=== PATIENT | female | born 1975 | race Caucasian/White ===

== ENCOUNTER 2019-10-05 17:42 | Emergency (ER) | payer OTHER, SELFPAY ==
[2019-10-05 17:53] VITALS: BP 131/83; PULSE 70; RESP 20; TEMP 36.6; O2SAT 98
--- NOTE | 2019-10-05 18:01 | ED.SKABFB ---
HPI - Skin/Abscess/Foreign Bdy General Chief complaint: Skin/Abscess/Foreign Body Stated complaint: rash Time Seen by Provider: 10/05/19 17:45 Source: patient Mode of arrival: ambulatory Limitations: no limitations History of Present Illness HPI narrative: 43-year-old female presents to urgent care with complaints of erythematous itchy rash to her bilateral knees and right thigh for the past 2 to 3 days. Patient reports long history of contact dermatitis. Patient reports that she was diagnosed 3 years ago and has recurrent flareups during the summer to her knees and legs. Patient reports that she recently saw dermatology and was placed on a new topical steroid as well as given and IM injection of steroids in the office. Patient reports that the rash resolved after 1 week but then quickly returned 2 to 3 days ago. Patient reports itching to the area of rash. Patient has been taking [id number] Zyrtec and Singulair with little relief. Patient denies shortness of breath, wheezing, trouble breathing or difficulty swallowing. MD complaint: rash Onset (ago): day(s) (3) Quality: pruritic Relieving factors: none Exacerbating factors: none Associated symptoms: denies other symptoms Related Data Home Medications Medication Instructions Recorded Confirmed montelukast 10 mg tablet 10 mg PO DAILY 06/29/19 10/05/19 cetirizine [Zyrtec] 10 mg PO DAILY 10/05/19 10/05/19 Allergies Allergy/AdvReac Type Severity Reaction Status Date / Time codeine Allergy Mild Anaphylaxis Verified 06/29/19 08:58 Review of Systems Review of Systems: All systems reviewed & are unremarkable except as noted in HPI and below Constitutional: Constitutional: Denies chills, Denies fever(s) and Denies weakness ENT: Denies dysphagia, Denies dizziness, Denies epistaxis and Denies sore throat Respiratory: Respiratory: Denies chest congestion, Denies cough, Denies dyspnea and Denies wheezing Gastrointestinal: Gastrointestinal: Denies abdominal pain, Denies constipation, Denies diarrhea, Denies nausea and Denies vomiting Musculoskeletal: Musculoskeletal: Denies arthralgias, Denies joint swelling and Denies muscle cramps Integumentary/Breasts: Skin/Breast: Denies breast mass, Reports pruritus, Reports erythema, Reports rash and Denies skin ulcer Neurologic: Denies confusion, Denies vertigo, Denies dizziness, Denies syncope and Denies weakness PMFSH Past Medical History Medical History (Updated 10/05/19 @ 18:12 by Maribel Spangler APRN) Eczematous dermatitis Family History Family History Grandparent Family history of malignant neoplasm of ovary Mother Family history of malignant neoplasm of ovary Sibling Patient's sister is in good health Father Acute myocardial infarction, Onset Age: 61 Social History Social History Smoking status: Never smoker Alcohol intake: never Gender identity (if verbalized by the patient): Female Exam Const: General: healthy appearing, no acute distress and alert Nutritional Appearance: well nourished Orientation/consciousness: patient oriented x3 Eyes: Pupils: Equal, round and reactive pupils present Neck: Neck: normal visual inspection Resp: Effort & Inspection: normal respiratory effort, not labored and not tachypneic Auscultation: clear to auscultation bilaterally Cardio: Rate: regular rate, not bradycardic and not tachycardic Rhythm: regular rhythm Heart sounds: no murmurs Skin: General skin exam: normal color, no jaundice and no pallor Wounds: no wounds Other: Raised erythematous rash noted to bilateral knees and lateral aspect of right thigh representing contact dermatitis. Rash appears to be excoriated due to large amount of scratching. There is no purulent drainage, bruising, bleeding, streaking erythema or signs of infection noted. Neuro: General: patient oriented x3 an
[2019-10-05] MEDS: methylPREDNISolone ACETATE 40 MG/ML VIAL IM (18:09)
== END 2019-10-05 18:16 | disposition home or self-care (01) ==
PROVIDERS: Emergency Provider Nurse Practitioner Family; PCP Family Medicine
DX: L25.9 Unspecified contact dermatitis, unspecified cause (principal)
CPT/HCPCS: 96372; 99213; G0463; J1030

== ENCOUNTER 2019-11-14 07:58 | Outpatient (CLI) | payer OTHER, SELFPAY ==
--- NOTE | ~2019-11-14 | MM_ITS ---
EXAMINATION: MM screening adriana BI w dori HISTORY: Screening TECHNIQUE: Craniocaudal and mediolateral oblique 3-D tomosynthesis images were obtained and synthetic 2-D images were generated. CAD analysis was submitted and interpreted. COMPARISON: No prior mammogram is available for comparison at this institution. BREAST PARENCHYMAL COMPOSITION: The breasts are heterogeneously dense, which may obscure small masses . FINDINGS: There are scattered benign-appearing breast calcifications. There is no evidence of suspici ous mass, calcification, or architectural distortion to suggest malignancy in either breast. There bautista s been no suspicious interval change. IMPRESSION: 1. No mammographic evidence of malignancy. 2. Recommend routine screening mammography in one year. BI-RADS Category 2: Benign finding(s). Reviewed, dictated and finalized at location A.
== END 2019-11-14 07:59 | disposition home or self-care (01) ==
PROVIDERS: Visit Provider Nurse Practitioner
DX: Z12.31 Encounter for screening mammogram for malignant neoplasm of breast (principal)
CPT/HCPCS: 77063; 77067

== ENCOUNTER → 2019-11-14 08:21 | Outpatient (CLI) | payer OTHER, SELFPAY ==
--- NOTE | ~2019-11-14 | US_ITS ---
EXAMINATION: US transvaginal EXAM DATE: 11/14/2019 09:21 INDICATION: Family history of ovarian cancer. TECHNIQUE: Pelvic transvaginal sonogram was performed. There are multiple grayscale and Doppler imag es available for interpretation. There is no prior study for comparison. FINDINGS: Uterus measures 8.2 x 3.9 x 5.1 cm, and is morphologically normal. Endometrial stripe levi sures 9 mm, within normal limits. There is no free pelvic fluid. Right adnexa: The ovary measures 1.5 x 1.1 x 1.3 cm and is morphologically normal. Ovarian vascular f low confirmed. Left adnexa: The ovary measures 3.3 x 2.2 x 2.3 cm and is morphologically normal, contains the domina nt physiologic follicle. Ovarian vascular flow confirmed. IMPRESSION: 1. Unremarkable pelvic ultrasound exam. Reviewed, dictated and finalized at location A.
== END ==
PROVIDERS: Visit Provider Nurse Practitioner
DX: N93.8 Other specified abnormal uterine and vaginal bleeding (principal); Z80.41 Family history of malignant neoplasm of ovary
CPT/HCPCS: 76830

== ENCOUNTER 2020-01-05 14:26 | Outpatient (CLI) | payer OTHER, SELFPAY ==
--- NOTE | ~2020-01-05 | XR_ITS ---
XR cervical spine 4-5V 01/05/2020 14:57 Indication: Neck pain Procedure: 4 views of the cervical spine Comparison: No prior studies for comparison. Findings: Mild multilevel uncinate hypertrophy. No fracture, subluxation or dislocation. No preverteb ral soft tissue abnormality. Odontoid process within normal limits. Lateral masses are normally align ed. Lung apices are normal. Impression: 1: Mild cervical spondylosis. Reviewed, dictated and finalized at location A. 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
--- NOTE | ~2020-01-05 | XR_ITS ---
XR shoulder LT min 2V 01/05/2020 14:56 INDICATION: Left shoulder pain PROCEDURE: 4 views left shoulder COMPARISON: No prior studies for comparison. FINDINGS: Fracture, dislocation or subluxation is not identified. The soft tissues appear within norm al limits. No foreign bodies are identified. IMPRESSION: 1: NO ACUTE BONE OR JOINT ABNORMALITY IDENTIFIED. Reviewed, dictated and finalized at location A. [employer]OR [employer]AMATION
== END 2020-01-05 14:27 | disposition home or self-care (01) ==
PROVIDERS: PCP Family Medicine; Visit Provider Family Medicine
DX: M25.512 Pain in left shoulder (principal); R20.0 Anesthesia of skin; M47.812 Spondylosis without myelopathy or radiculopathy, cervical region
CPT/HCPCS: 72050; 73030

== ENCOUNTER 2020-07-17 19:10 | Emergency (ER) | payer OTHER, SELFPAY ==
[2020-07-17 19:16] VITALS: BP 127/93; PULSE 87; RESP 20; TEMP 36.7; O2SAT 99
--- NOTE | 2020-07-17 19:44 | ED.GENADULT ---
HPI - General Adult General Chief complaint: Skin/Abscess/Foreign Body Stated complaint: Rash Source: patient Mode of arrival: ambulatory Limitations: no limitations History of Present Illness HPI narrative: Patient presents for evaluation of pruritus to the left elbow for last 2 weeks. She indicates she has recurrent dermatitis left elbow that occurs annually in February. This year her symptoms started 2 weeks ago. She denies any new lotions, soaps, detergents, topical products. In the past she has required Kenalog 40 mg IM. She states that she cannot tolerate oral steroids and has increased irritability and insomnia while on oral steroids. She is seen dermatology for this in the past. In the last 2 days she is used several topical products including steroids and herbal products without much improvement in her symptoms. She is leaving tomorrow for a trip to [place]. Related Data Home Medications Medication Instructions Recorded Confirmed levonorgestrel-ethinyl estrad 1 tablet DAILY 07/17/20 07/17/20 [Vienva] montelukast 10 mg DAILY 07/17/20 07/17/20 pregabalin 75 mg DAILY 07/17/20 07/17/20 Allergies Allergy/AdvReac Type Severity Reaction Status Date / Time codeine Allergy Mild Anaphylaxis Verified 04/27/20 10:18 Review of Systems Review of Systems: Narrative: CONSTITUTIONAL: Denies fever, chills, or sweats. EYES: Denies visual changes, redness, or discharge. ENT: Denies rhinorrhea, congestion, sore throat, or otalgia. CARDIOVASCULAR: Denies chest pain, palpitations, or edema. RESPIRATORY: Denies cough or dyspnea. GASTROINTESTINAL: Denies abdominal pain, nausea, vomiting, or diarrhea. GENITOURINARY: Denies dysuria or hematuria. SKIN: Reports itching to the left elbow MUSCULOSKELETAL: Denies back pain, joint pain, or myalgia. NEUROLOGIC: Denies headache, numbness, dizziness, or weakness. PSYCHIATRIC: Denies anxiety or depression. [facility] Past Medical History Medical History Eczematous dermatitis Surgical History Surgical History Adhesive capsulitis of left shoulder April 2020 Family History Family History Grandparent Family history of malignant neoplasm of ovary Mother Family history of malignant neoplasm of ovary Sibling Patient's sister is in good health Father Acute myocardial infarction, Onset Age: 61 Social History Social History Second hand tobacco smoke exposure: No Alcohol intake: never Substance use: never Substance use type: does not use Gender identity (if verbalized by the patient): Female Exam Narrative: Exam Narrative: GENERAL: Well-appearing, well-nourished, and in no acute distress. HEAD: Normocephalic, atraumatic. EYES: PERRLA and EOMI. ENT: Nares clear, no rhinorrhea or epistaxis. Mucous membranes moist. Oropharynx without tonsillar hypertrophy exudate or other lesions. Bilateral TMs pearly gan nonbulging NECK: Supple. No adenopathy or masses. No carotid bruits or JVD CHEST: Clear to auscultation. No respiratory distress. No wheezes rales or rhonchi HEART: Regular rate and rhythm. No murmur heard. Normal peripheral pulses. ABDOMEN: Soft, nontender, nondistended, normal active bowel sounds. EXTREMITIES: Normal range of motion. No edema. SKIN: Approximately 2 cm of erythema noted to left elbow. Otherwise skin is warm, dry, no rash. NEURO: No focal deficits. Alert and oriented x3. PSYCH: s normal mood and affect. 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 She is leaving for a trip tomorrow and has required an Kenalog in the past. Unfortunately we do not have the medication available here. I contacted pharmacist for dose conversi
[2020-07-17] MEDS: methylPREDNISolone SOD SUCC 125 MG VIAL 40 MG IM (19:50)
[2020-07-17 19:54] VITALS: BP 127/93; PULSE 87; RESP 20; TEMP 36.7; O2SAT 99
== END 2020-07-17 19:56 | disposition home or self-care (01) ==
PROVIDERS: Emergency Provider Nurse Practitioner; PCP Family Medicine
DX: R21 Rash and other nonspecific skin eruption (principal); L23.9 Allergic contact dermatitis, unspecified cause
CPT/HCPCS: 96372; 99213; G0463; J2930

== ENCOUNTER 2021-04-03 10:28 | Emergency (ER) | payer OTHER, SELFPAY ==
--- NOTE | 2021-04-03 10:41 | ED.ALLEREA ---
HPI - Allergic Reaction General Chief complaint: Allergic Reaction Stated complaint: Alergic reaction Time Seen by Provider: 04/03/21 10:46 Source: patient, RN notes reviewed and old records reviewed Mode of arrival: ambulatory Limitations: no limitations History of Present Illness HPI narrative: 45 year old female who presents to [facility] with complaints of allergic dermatitis with itching to her face and eyes. Patient reports that she takes a monthly allergy shot for seasonal allergies and she usually has a few days duration of some bumps to her cheeks, some facial flushing for a few days after receiving her injection but this has continued, last allergy injection was on the February. Patient states that she has used OTC ointments to face for rosacea taken her Singulair and Zyrtec and also has been taking hydroxyzine without resolution of the facial flushing, itching of face and eyes. Patient denies any difficulty breathing or any trouble with her swallowing. Patient denies any new medications, foods, lotions,soaps, or any new laundry detergents. MD complaint: facial swelling Symptoms: itching and facial swelling Treatment prior to arrival: topical medicine and ice Related Data Home Medications Medication Instructions Recorded Confirmed hydroxyzine HCl 25 mg PO PRN PRN 04/03/21 04/03/21 meloxicam 15 mg PO DAILY 04/03/21 04/03/21 Allergies Allergy/AdvReac Type Severity Reaction Status Date / Time codeine Allergy Severe Anaphylaxis Verified 04/03/21 15:54 Review of Systems Review of Systems: CONSTITUTIONAL: Denies fever, chills, or sweats. EYES: Denies visual changes, redness, or discharge.positive for itching and burning sensation to eyes. ENT: Denies rhinorrhea, congestion, sore throat, or otalgia. CARDIOVASCULAR: Denies chest pain, palpitations, or edema. RESPIRATORY: Denies cough or dyspnea. GASTROINTESTINAL: Denies abdominal pain, nausea, vomiting, or diarrhea. GENITOURINARY: Denies dysuria or hematuria. SKIN: Positive for facial rash with redness and warm with itching and also itching to eyes. MUSCULOSKELETAL: Denies back pain, joint pain, or myalgia. NEUROLOGIC: Denies headache, numbness, or weakness. PSYCHIATRIC: Denies anxiety or depression. All systems reviewed & are unremarkable except as noted in HPI and below PMFSH Past Medical History Medical History Adhesive capsulitis Allergic asthma Duodenal ulcer Eczematous dermatitis GERD (gastroesophageal reflux disease) Seasonal allergies Surgical History Surgical History Adhesive capsulitis of left shoulder April 2020 Family History Family History Grandparent Family history of malignant neoplasm of ovary Mother Family history of malignant neoplasm of ovary Sibling Patient's sister is in good health Father Acute myocardial infarction, Onset Age: 61 Social History Social History Social History: Smoking status: Never smoker Second hand tobacco smoke exposure: No Alcohol intake: never Substance use: never Substance use type: does not use Gender identity (if verbalized by the patient): Female Sexual Orientation (if Verbalized by the Patient): Straight or Heterosexual Comments At time of signature, agree with nursing past medical, surgical, social and family history. There is no relevant family history pertinent to the presenting complaint Exam Narrative: GENERAL: Well-appearing, well-nourished, and in no acute distress. HEAD: Normocephalic, atraumatic. EYES: PERRLA and EOMI, bilateral eyes burning and itching ENT: Nares clear, no rhinorrhea or epistaxis. Mucous membranes moist.TM's normal with good light reflex, throat pink with no lesions or exudates no tonsil enlargement, no Brodie a
[2021-04-03 10:48] VITALS: BP 116/88; PULSE 85; RESP 18; TEMP 36.2; O2SAT 100
[2021-04-03] MEDS: TRIAMCINOLONE ACET INJ 40 MG/ML VIAL IM (10:59)
== END 2021-04-03 11:45 | disposition home or self-care (01) ==
PROVIDERS: Emergency Provider Registered Nurse; PCP Family Medicine
DX: L25.8 Unspecified contact dermatitis due to other agents (principal); K21.9 Gastro-esophageal reflux disease without esophagitis; J45.909 Unspecified asthma, uncomplicated
CPT/HCPCS: 96372; 99213; G0463; J3301

== ENCOUNTER 2021-08-25 09:55 | Outpatient (CLI) | payer OTHER, SELFPAY | END 2021-08-25 09:56 | disposition home or self-care (01) | LOC: ANHAUDIO 09:57 | PROVIDERS: PCP Family Medicine; Visit Provider Otolaryngology | DX: H93.13 Tinnitus, bilateral (principal) | CPT/HCPCS: 92557; 92567 ==

== ENCOUNTER 2022-06-29 15:34 | Emergency (ER) | payer OTHER, SELFPAY ==
[2022-06-29 15:39] VITALS: BP 107/84; PULSE 75; RESP 16; TEMP 36.1; O2SAT 99
--- NOTE | 2022-06-29 15:53 | ED.EYEPROB ---
HPI - Eye Problem General Chief complaint: Eye Problems Stated complaint: EYE REDNESS Time Seen by Provider: 06/29/22 15:44 Source: patient and RN notes reviewed Mode of arrival: ambulatory Limitations: no limitations History of Present Illness HPI Narrative: Patient presents today complaining of bilateral eye redness, right greater than left with white drainage from the right eye. Symptoms began this morning when she woke up. Denies vision changes or pain to the eye. She tried some Visine without relief. Patient also reports some allergy symptoms this morning including congestion, sneezing. She does not take any allergy medication and states that it was causing tinnitus. Patient wears glasses Related Data Allergies Allergy/AdvReac Type Severity Reaction Status Date / Time codeine Allergy Severe Anaphylaxis Verified 06/29/22 15:35 Review of Systems Review of Systems: CONSTITUTIONAL: Denies body aches, fever, chills, or sweats. EYES: Denies visual changes.+ bilateral eye redness, right eye drainage ENT: Denies rhinorrhea, sore throat, or otalgia.+ congestion, sneezing CARDIOVASCULAR: Denies chest pain, palpitations, or edema. RESPIRATORY: Denies cough or dyspnea. GASTROINTESTINAL: Denies abdominal pain, nausea, vomiting, or diarrhea. GENITOURINARY: Denies dysuria or hematuria. SKIN: Denies rash, itching, or wounds. MUSCULOSKELETAL: Denies back pain, joint pain, or myalgia. NEUROLOGIC: Denies headache, numbness, tingling, or weakness. PSYCH: Denies depression or anxiety. [facility] Past Medical History Medical History Adhesive capsulitis Allergic asthma Chronic GERD Constipation Dermatitis of lower extremity Duodenal ulcer Dysfunction of both eustachian tubes Eczematous dermatitis Fibromyalgia Generalized pruritus GERD (gastroesophageal reflux disease) PUD (peptic ulcer disease) PUD (peptic ulcer disease) Seasonal allergies Urticaria Surgical History Surgical History Adhesive capsulitis of left shoulder April 2020 Family History Family History Grandparent Family history of malignant neoplasm of ovary Mother Family history of malignant neoplasm of ovary Hearing loss associated with syndrome Sibling Patient's sister is in good health Father Acute myocardial infarction, Onset Age: 61 Social History Social History Social History: Smoking status: Never smoker Second hand tobacco smoke exposure: No Alcohol intake: never Substance use: never Substance use type: does not use Lack of Transportation: No Lack of Food: Never True Current Housing: I Have Housing Concerned About Future Housing: No Difficulty Paying Gas/Electric Bills: No Difficulty Paying for Meds: No Currently Unemployed: No Education: Master's Degree or Higher Difficulty w/ Childcare or Family Care: No Living arrangements: with family Occupation/Education: occupation Gender identity (if verbalized by the patient): Female Sexual Orientation (if Verbalized by the Patient): Straight or Heterosexual Comments At time of signature, I have reviewed and agree with nursing past medical, surgical, social and family history unless otherwise noted. Please see nursing chart for further information. There is no relevant family history pertinent to the presenting complaint Exam Narrative: GENERAL: Well-appearing, well-nourished, and in no acute distress. HEAD: Normocephalic, atraumatic. EYES: EOMI. PERRL. Left eye normal. Right eye mildly injected with active my purulent discharge. Lids and lashes normal. ENT: Mucous membranes pink and moist. Nares congested. NECK: Normal AROM. Supple. No lymphadenopathy. CHEST: No respiratory distress. Clear t
== END 2022-06-29 15:59 | disposition home or self-care (01) ==
PROVIDERS: Emergency Provider Nurse Practitioner; PCP Family Medicine
DX: H10.31 Unspecified acute conjunctivitis, right eye (principal); J45.909 Unspecified asthma, uncomplicated; K21.9 Gastro-esophageal reflux disease without esophagitis; M79.7 Fibromyalgia; K27.9 Peptic ulcer, site unspecified, unspecified as acute or chronic, without hemorrhage or perforation
CPT/HCPCS: 99213; G0463

== ENCOUNTER → 2022-08-09 14:44 | Outpatient (CLI) | payer OTHER, SELFPAY ==
--- NOTE | ~2022-08-09 | CT_ITS ---
EXAMINATION: CT sinus wo con DATE: 08/09/2022 14:57 INDICATION: TECHNIQUE: Computed tomography (CT) of the paranasal sinuses was performed without intravenous contra st. Automated exposure control and iterative reconstruction technique were employed. The dose-length product (DLP) was 294.16 mGy-cm. Iterative reconstruction was used. COMPARISON: None FINDINGS: There is normal development and pneumatization of the paranasal sinuses. Retention cyst/jose angel yp in the right sphenoid sinus. Somewhat nodular appearing mucosal thickening in the inferior bilater al maxillary sinuses. Small volume fluid in the left mastoid air cells. The remaining aerated spaces are clear. The bilateral ostiomeatal complexes are patent. Visualized soft tissues are unremarkable. Mild degenerative change at the atlantoaxial joint. IMPRESSION: Mucoperiosteal disease in the bilateral maxillary sinuses. Retention cyst/polyp in the right sphenoid sinus. Small left mastoid effusion. Reviewed, dictated and finalized at location K.
== END ==
PROVIDERS: PCP Family Medicine
DX: J01.00 Acute maxillary sinusitis, unspecified (principal); J34.1 Cyst and mucocele of nose and nasal sinus; H74.8X2 Other specified disorders of left middle ear and mastoid
CPT/HCPCS: 70486

== ENCOUNTER 2022-11-14 08:01 | Outpatient (CLI) | payer OTHER, SELFPAY ==
--- NOTE | ~2022-11-14 | CT_ITS ---
Noncontrast CT scan of the cervical spine Technique: Multiple contiguous axial [address] images of the cervical spine were obtained and rec onstructed in 2D sagittal and coronal planes on the acquisition scanner. Dose reduction technique was used on this scan by utilizing automated exposure control, adjustment of the mA and/or kV according to patient size. The dose-length product (DLP) was 163.33 mGy-cm. Clinical History: Spondylosis Findings: No fractures or dislocations. There is minimal reversal normal cervical lordosis. Interver tebral disc spaces are well preserved. No significant disc bulge or herniation evident. No definite s mely canal stenosis or neural foraminal narrowing. No prevertebral soft tissue swelling. Impression: No significant abnormality evident. Consider MR to further evaluate for discogenic disease, as indica nicole. Reviewed, dictated and finalized at [facility]. Impression: No significant abnormality evident. Consider MR to further evaluate for discoge areli disease, as indicated.
== END 2022-11-14 08:02 | disposition home or self-care (01) ==
PROVIDERS: PCP Family Medicine; Visit Provider Family Medicine
DX: M47.22 Other spondylosis with radiculopathy, cervical region (principal)
CPT/HCPCS: 72125

== ENCOUNTER → 2023-04-01 10:45 | Outpatient (CLI) | payer OTHER, SELFPAY ==
--- NOTE | ~2023-04-01 | CT_ITS ---
EXAMINATION: CT sinus wo con DATE: 04/01/2023 10:57 INDICATION: Acute recurrent maxillary sinusitis TECHNIQUE: Computed tomography (CT) of the paranasal sinuses was performed without intravenous contra st. The dose-length product (DLP) was 269.39 mGy-cm. Iterative reconstruction was used. COMPARISON: 08/09/2022 FINDINGS: Mild leftward bowing of the osseous nasal septum. There is normal development and pneumatiz ation of the paranasal sinuses. Right sphenoid retention cyst/polyp. Nodular/polypoid mucosal thicken ing in the bilateral inferior maxillary sinuses, aerated secretions in a left posterior ethmoid air c ell, partial left mastoid air cell opacification, the remaining paranasal sinuses and right mastoid a ir cells are clear. The bilateral ostiomeatal complexes are patent. Visualized soft tissues are unrem arkable. IMPRESSION: Aerated secretions in a left posterior ethmoid air cell may reflect acute sinusitis in the appropriat e clinical context. Nodular/polypoid mucoperiosteal disease in the bilateral maxillary sinuses. Right sphenoid retention cyst/polyp. Small left mastoid effusion. Reviewed, dictated and finalized at location K. 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 Nodular/polypoid mucoperiosteal disease in the bilateral maxillary sinuses. Right sphenoid retention cyst/polyp. Small left mastoid effusion.
== END ==
DX: J32.0 Chronic maxillary sinusitis (principal); J34.1 Cyst and mucocele of nose and nasal sinus; H74.8X3 Other specified disorders of middle ear and mastoid, bilateral
CPT/HCPCS: 70486

== ENCOUNTER 2023-09-11 09:52 | Outpatient (CLI) | payer OTHER, SELFPAY ==
--- NOTE | ~2023-09-11 | XR_ITS ---
3 VIEWS LUMBAR SPINE Ordering provider: Chari Grant PA-C History: . M54.50 - Low back pain, unspecified . Comparison: None. FINDINGS: VERTEBRAL BODIES: No visible fracture or subluxation. DISK SPACES: Normal. SOFT TISSUES: Normal. IMPRESSION: No acute osseous abnormality lumbar spine. Reviewed, dictated and finalized at location A.
== END 2023-09-11 09:53 ==
LOC: MICIMG 09:53
PROVIDERS: PCP Family Medicine; Visit Provider Student in an Organized Health Care Education/Training Program
DX: M54.50 Low back pain, unspecified (principal)
CPT/HCPCS: 72100